=== PATIENT | male | born 1955 | race Caucasian/White ===

== ENCOUNTER → 2019-09-18 | Outpatient (CLI) | payer OTHER ==
--- NOTE | 2019-09-18 11:44 | 2DMMODE ---
[facility] [place] [address] 2 D/M-MODE ECHOCARDIOGRAM Name: KEVIN ABEL Room #: REG [facility] M.R.#: [id number] Admission: 09/18/19 Attend Phys: Alex Bailey MD Discharge: Date of : 55 Report #: [id number] THIS REPORT FOR: cc: FAM - Family physician unknown FAM - Family physician unknown Prince Carmona MD ~ APPROVED REPORT Study performed: 09/18/2019 10:57:06 EXAM: Comprehensive 2D, Doppler, and color-flow Echocardiogram Patient Location: Out-Patient Status: routine BSA: 2.01 HR: 63 bpm BP: 128/84 mmHg Rhythm: NSR Other Information Study Quality: Good Indications Ischemic cardiomyopathy. Hx: Stents, CABG. 2D Dimensions RVDd: 31.12 mm IVSd: 9.68 (7-11mm) LVOT Diam: 23.67 (18-24mm) LVDd: 47.71 mm PWd: 8.49 (7-11mm) Ascending Ao: 32.41 (22-36mm) LVDs: 35.53 (25-40mm) Aortic Root: 35.87 mm Volumes Left Atrial Volume (Systole) Single Plane 4CH: 33.24 mL Single Plane 2CH: 34.37 mL LA ESV Index: 18.00 mL/m2 Aortic Valve AoV Peak Inocencio.: 0.96 m/s AO Peak Gr.: 3.70 mmHg LVOT Max P.68 mmHg LVOT Max V: 0.96 m/s DARRICK Vmax: 4.39 cm2 [facility] [address] [place] [address] 2 D/M-MODE ECHOCARDIOGRAM Name: KEVIN ABEL Room #: REG [facility].#: [id number] Admission: 09/18/19 Attend Phys: Alex Bailey MD Discharge: Date of : 55 Report #: [id number] Mitral Valve E/A Ratio: 0.8 MV Decel. Time: 261.69 ms MV E Max Inocencio.: 0.71 m/s MV A Inocencio.: 0.85 m/s MV PHT: 75.89 ms IVRT: 83.04 ms Pulmonary Valve PV Peak Inocencio.: 1.18 m/s PV Peak Gr.: 5.57 mmHg Pulmonary Vein P Vein S: 0.57 m/s P Vein D: 0.40 m/s P Vein S/D Ratio: 1.42 Tricuspid Valve TR Peak Inocencio.: 2.39 m/s RAP Estimate: 5.00 mmHg TR Peak Gr.: 23.00 mmHg PA Pressure: 28.00 mmHg Left Ventricle The left ventricle is normal size. Regional wall motion abnormalities are noted. There is normal left ventricular wall thickness. Mild basal septal hypertrophy is present. The left ventricular systolic function is low-normal. LVEF is 50%. Mild diastolic dysfunction is present (impaired relaxation pattern). Right Ventricle The right ventricle is normal size. The right ventricular systolic function is normal. Atria The left atrium size is normal. The right atrium size is normal. Aortic Valve The aortic valve is normal in structure. No aortic regurgitation is present. There is no aortic valvular stenosis. Mitral Valve The mitral valve is normal in structure. Moderate mitral regurgitation. No evidence of mitral valve stenosis. Tricuspid Valve [facility] [address] [place] [address] 2 D/M-MODE ECHOCARDIOGRAM Name: KEVIN ABEL Room #: REG [facility].#: [id number] Admission: 09/18/19 Attend Phys: Alex Bailey MD Discharge: Date of : 55 Report #: [id number] The tricuspid valve is normal in structure. Mild tricuspid regurgitation. Estimated PAP is 25-30mmHg. Pulmonic Valve The pulmonary valve is normal in structure. Mild pulmonic regurgitation. Great Vessels The aortic root is normal in size. The ascending aorta is normal in size. IVC is normal in size and collapses >50% with inspiration. Pericardium There is no pericardial effusion. <Conclusion> The left ventricle is normal size. The left ventricular systolic function is low-normal. LVEF is 50%. Mild diastolic dysfunction is present (impaired relaxation pattern). The right ventricle is normal size. The left atrium size is normal. The aortic valve is normal in structure. Moderate mitral regurgitation. Mild tricuspid regurgitation. Estimated PAP is 25-30mmHg. <ELECTRONICALLY SIGNED> By: Prince Carmona MD 09/18/19 1143 1143 1143 Prince Carmona MD /INF
== END ==
LOC: CV 10:42
PROVIDERS: ATTEND Orthopaedic Surgery
DX: I08.8 Other rheumatic multiple valve diseases (principal); I25.5 Ischemic cardiomyopathy